=== PATIENT | female | born 1940 | race Caucasian/White ===

== ENCOUNTER 2023-12-19 09:24 | Day surgery (SDC) | payer OTHER ==
[2023-12-17 16:48] VITALS: BMI 18.6
[2023-12-19 11:17] VITALS: RESP 18; TEMP 97
[2023-12-19 11:45] VITALS: BP 120/80; PULSE 78
== END 2023-12-19 11:43 | disposition home or self-care (01) ==
LOC: FASU-ENDO 09:24
PROVIDERS: ATTEND Internal Medicine Gastroenterology
PROC: 0DBP8ZX Excision of Rectum, Via Natural or Artificial Opening Endoscopic, Diagnostic (ICD-10-PCS; 2023-12-19)
PROC: 0DBB8ZX Excision of Ileum, Via Natural or Artificial Opening Endoscopic, Diagnostic (ICD-10-PCS; principal; 2023-12-19 10:41)
DX: Z12.11 Encounter for screening for malignant neoplasm of colon (principal); D12.8 Benign neoplasm of rectum; K64.1 Second degree hemorrhoids; K64.8 Other hemorrhoids; Z85.038 Personal history of other malignant neoplasm of large intestine
CPT/HCPCS: 88305-TC